=== PATIENT | female | born 1955 | race Caucasian/White ===

== ENCOUNTER → 2017-09-22 | Outpatient (CLI) | payer BC ==
[~2017-09-22] MED LIST: ALIGN4 MG PO; CLONAZEPAM1 MG PO; DICYCLOMINE HCL20 MG PO; ESTRADIOL-NORE1 EACH PO; ESTROGEN PO; KLONOPIN PO; PANTOPRAZOLE SO40 MG PO; PRAVASTATIN SOD40 MG PO; SAPHRIS10 MG PO
--- NOTE | 2017-09-26 16:31 | Diagnostic Imaging Report ---
#[id number] - MGSCRBIL #BILATERAL DIGITAL SCREENING MAMMOGRAM WITH CAD: 09/22/2017 CLINICAL: Routine screening. Comparison is made to exam dated: 09/12/2016 mammogram - [facility]. Current study contains 4 films. The tissue of both breasts is predominantly fatty. Current study was also evaluated with a Computer Aided Detection (CAD) system. There are benign calcifications in both breasts. There also are benign intramammary nodes in both breasts. No significant masses, calcifications, or other findings are seen in either breast. There has been no significant interval change. IMPRESSION: BENIGN There is no mammographic evidence of malignancy. A 1 year screening mammogram is recommended. The patient will be notified by letter of the results. Jassi feliciano/albert:09/26/2017 10:49:42 Manager Investigations: Cyndi KIRBY(R)(M), [facility] letter sent: Compared to Prior B9 Mammogram BI-RADS: 2 Benign
== END | disposition home or self-care (01) ==
LOC: MAMMO 08:36
PROVIDERS: ATTEND Obstetrics & Gynecology Obstetrics
DX: Z12.31 Encounter for screening mammogram for malignant neoplasm of breast (principal)
CPT/HCPCS: 77067

== ENCOUNTER → 2018-03-23 | Outpatient (CLI) | payer BC ==
--- NOTE | 2018-03-23 09:13 | Diagnostic Imaging Report ---
PROCEDURE:US RETROPERITONEAL ( KIDNEY ). COMPARISON:None. INDICATIONS:RENAL CYST TECHNIQUE: Walter-scale and color sonographic images of the bilateral kidneys and bladder where obtained in transverse and longitudinal planes. FINDINGS: RIGHT KIDNEY: 11.5 cm in length, cortical thickness 2.1 cm Cysts: Exophytic anechoic simple cyst projecting from the medial aspect of the right kidney measuring 6 x 6 x 5.9 cm. Small amount of echogenic debris layering within the dependent portion. No internal vascularity by color Doppler analysis. Solid masses: None Stones: None Hydronephrosis: None Echogenicity: Normal renal cortical echogenicity. LEFT KIDNEY: 10.9 cm in length, cortical thickness 1.8 cm. Cysts: None Solid masses: None Stones: None Hydronephrosis: None Echogenicity: Normal renal cortical echogenicity. Bladder: Unremarkable. Right and left ureteral jets are identified. CONCLUSION: 6 cm right renal cyst with small amount of layering internal debris. Dictated by: on 03/23/2018 at 9:21 Rivera Jay MD Electronically approved by: Rivera Jay M.D. on 03/23/2018 at 9:21
== END ==
LOC: US 07:31
PROVIDERS: ATTEND Family Medicine
DX: N28.1 Cyst of kidney, acquired (principal)
CPT/HCPCS: 76770

== ENCOUNTER → 2018-09-21 | Outpatient (CLI) | payer BC | LOC: MAMMO 08:22 | PROVIDERS: ATTEND Obstetrics & Gynecology Obstetrics | DX: Z12.31 Encounter for screening mammogram for malignant neoplasm of breast (principal) | CPT/HCPCS: 77067 ==

== ENCOUNTER → 2018-12-30 | Outpatient (CLI) | payer BC ==
[~2018-12-30] MED LIST changes: +CYMBALTA30 MG PO; +LOSARTAN POTASS25 MG PO
--- NOTE | 2018-12-30 09:36 | Diagnostic Imaging Report ---
EXAMINATION: CHEST 2 VIEWS INDICATION: Asthma COMPARISON: None FINDINGS: TUBES and LINES: None. LUNGS: The lungs are mildly hyperinflated. No focal consolidation or pulmonary edema. PLEURA: No pleural effusion or pneumothorax. HEART AND MEDIASTINUM: The cardiomediastinal silhouette is normal in size and contour. BONES AND SOFT TISSUES: Old midthoracic lateral rib fracture on the right. No acute fracture. UPPER ABDOMEN: No free air under the diaphragm. IMPRESSION: Mildly hyperinflated lungs. No focal pneumonia or pulmonary edema. Signed by: Yesenia Cherry MD on 12/30/2018 9:32 AM
== END ==
LOC: RAD 08:19
PROVIDERS: ATTEND Family Medicine
DX: J45.909 Unspecified asthma, uncomplicated (principal)
CPT/HCPCS: 71046

== ENCOUNTER → 2019-02-22 | Day surgery (SDC) | payer BC ==
[~2019-02-22] MED LIST changes: +FENTANYL CITRATE/PF 100MCG/2 ML INJ ONE; +GLUCAGON FOR INJ 1 MG VIAL ONE; +HYOSCYAMINE 0.125 MG TAB ONE; +MIDAZOLAM HCL 2 MG/2 ML VIAL ONE; +PROPOFOL IV EMULSION 10 MG/ML 20 ML VIAL ONE; +PROPOFOL IV EMULSION 10 MG/ML 50 ML VIAL ONE
--- OUTSIDE RECORDS SUMMARY | 2019-02-22 06:03 | XMS REPORT ---
Author Author [facility] Address Unknown Phone Unavailable Care Team Providers Care Credit And Collections Analyst Name Role Phone GABE CARMONA Unavailable Unavailable Kelly RANDALL Unavailable Unavailable Problems This patient has no known problems. Allergies, Adverse Reactions, Alerts This patient has no known allergies or adverse reactions. Medications This patient has no known medications. Results Test Description Test Time Test Comments Text Results Atomic Results Result Comments CHEST 2 VIEWS 2018-12-30 09:25:00 [facility] [address] [place] [address] Patient Name: BEN DIAS MR #: [id number] : 1955 Age/Sex: 63/F Req #: [id number] Adm Physician: Ordered by: GABE CARMONA MD Report #: [id number] Location: [facility] Room/Bed: Procedure: [id number] DX/CHEST 2 VIEWS Exam Date: 12/30/18 Exam Time: 824 REPORT STATUS: Signed EXAMINATION: CHEST 2 VIEWS INDICATION: Asthma COMPARISON: None FINDINGS: TUBES and LINES: None. LUNGS: The lungs are mildly hyperinflated. No focal consolidation or pulmonary edema. PLEURA: No pleural effusion or pneumothorax. HEART AND MEDIASTINUM: The cardiomediastinal silhouette is normal in size and contour. BONES AND SOFT TISSUES: Old midthoracic lateral rib fracture on the right. No acute fracture. UPPER ABDOMEN: No free air under the diaphragm. IMPRESSION: Mildly hyperinflated lungs. No focal pneumonia or pulmonary edema. Signed by: Candelario Aragon MD on 12/30/2018 9:32 AM Dictated By: CANDELARIO ARAGON MD 1 Transcribed By: VAN on 12/30/18931 COPY TO: GABE CARMONA MD MAMMOGRAPHY DIGITAL SCR BILAT 2018-09-21 09:06:00 [place] [address] Patient Name: BEN DIAS MR #: [id number] : 1955 Age/Sex: 62/F Req #: [id number] Adm Physician: Ordered by: CRUZITO RANDALL MD Report #: [id number] Location: MAMMO Room/Bed: Procedure: [id number] MG/MAMMOGRAPHY DIGITAL SCR BILAT Exam Date: 09/21/18 Exam Time: 0850 REPORT STATUS: Signed #[id number] - MGSCRBIL #BILATERAL DIGITAL SCREENING MAMMOGRAM WITH CAD: 09/21/2018 CLINICAL: Routine screening. Comparison is made to exams dated: 09/22/2017 mammogram, 09/12/2016 mammogram and 09/22/2015 mammogram - [facility]. Current study contains 4 films. The tissue of both breasts is predominantly fatty. Current study was also evaluated with a Computer Aided Detection (CAD) system. There are benign calcifications in both breasts. There also are benign intramammary nodes in both breasts. No significant masses, calcifications, or other findings are seen in either breast. There has been no significant interval change. IMPRESSION: BENIGN There is no mammographic evidence of malignancy. A 1 year screening mammogram is recommended. The patient will be notified by letter of the results. Jassi feliciano/albert:10/06/2018 17:04:57 Front Edger: Cyndi CHAMBERLAIN)(M), [facility] letter sent: Compared to Prior B9 Mammogram BI-RADS: 2 Benign Dictated By: JASSI LEMUS DO 03 Transcribed By: ALBERT on 10/06/181703 COPY TO: CRUZITO RANDALL MD US RENAL RETROPERITONEAL COMP 2018-03-23 09:21:00 [place] [address] Patient Name: BEN DIAS MR #: [id number] : 1955 Age/Sex: 62/F Req #: [id number] Adm Physician: Ordered by: GABE CARMONA MD Report #: [id number] Location: US Room/Bed: Procedure: [id number] US/US RENAL RETROPERITONEAL COMP Exam Date: Exam Time: REPORT STATUS: Signed PROCEDURE: US RETROPERITONEAL ( KIDNEY ). COMPARISON: None. INDICATIONS: RENAL CYST TECHNIQUE: Walter-scale and color sonographic images of the bilateral kidneys and bladder where obtained in transverse and longitudinal planes. FINDINGS: RIGHT KIDNEY: 11.5 cm in length, cortical thickness 2.1 cm Cysts: Exophytic anechoic simple cyst projecting from the medial aspect of the right kidney measuring 6 x 6 x 5.9 cm. Small amount of echogenic debris layering within the dependent portion. No internal vascularity by color Doppler analysis. Solid masses: None Stones: None Hydronephrosis: None Echogenicity: Normal renal cortical echogenicity. LEFT KIDNEY: 10.9 cm in length, cortical thickness 1.8 cm. Cysts: None Solid masses: None Stones: None Hydronephrosis: None Echogenicity: Normal renal cortical echogenicity. Bladder: Unremarkable. Right and left ureteral jets are identified. CONCLUSION: 6 cm right renal cyst with small amount of layering internal debris. Dictated by: on 03/23/2018 at 9:21 Xiomy Hedrick MD Electronically approved by: Xiomy Hedrick M.D. on 03/23/2018 at 9:21 Dictated By: XIOMY HEDRICK MD 0 Transcribed By: CLAU on 03/23/18920 COPY TO: GABE CARMONA MD MAMMOGRAPHY DIGITAL SCR BILAT [place] [address] Patient Name: BEN DIAS MR #: [id number] : 1955 Age/Sex: 61/F Req #: [id number] Adm Physician: Ordered by: CRUZITO RANDALL MD Report #: [id number] Location: MAMMO Room/Bed: Procedure: [id number] MG/MAMMOGRAPHY DIGITAL SCR BILAT Exam Date: 09/22/17 Exam Time: 0950 REPORT STATUS: Signed #[id number] - MGSCRBIL #BILATERAL DIGITAL SCREENING MAMMOGRAM WITH CAD: 09/22/2017 CLINICAL: Routine screening. Comparison is made to exam dated: 09/12/2016 mammogram - [facility]. Current study contains 4 films. The tissue of both breasts is predominantly fatty. Current study was also evaluated with a Computer Aided Detection (CAD) system. There are benign calcifications in both breasts. There also are benign intramammary nodes in both breasts. No significant masses, calcifications, or other findings are seen in either breast. There has been no significant interval change. IMPRESSION: BENIGN There is no mammographic evidence of malignancy. A 1 year screening mammogram is recommended. The patient will be notified by letter of the results. Jassi feliciano/albert:09/26/2017 10:49:42 Front Edger: Cyndi CHAMBERLAIN)(Si[place]), [facility] letter sent: Compared to Prior B9 Mammogram BI- RADS: 2 Benign Dictated By: JASSI LEMUS DO 104 Transcribed By: ALBERT on 09/26/17 1049 COPY TO: CRUZITO RANDALL MD CHEST 2 VIEWS [place] [address] Patient Name: BEN DIAS MR #: [id number] : 1955 Age/Sex: 61/F Req #: [id number] Adm Physician: Ordered by: GABE CARMONA MD Report #: [id number] Location: [facility] Room/Bed: Procedure: [id number] DX/CHEST 2 VIEWS Exam Date: Exam Time: REPORT STATUS: Signed PROCEDURE: Frontal and lateral views of the chest. COMPARISON: Chest 2 views 12/11/2015. INDICATIONS: BRONCHITIS FINDINGS: Lines/tubes: None. Lungs: The lungs are well inflated and clear. There is no evidence of pneumonia or pulmonary edema. Pleura: There is no pleural effusion or pneumothorax. Heart and mediastinum: The heart and the mediastinum are normal. Atherosclerotic calcifications. Bones: No acute bony abnormality. Degenerative changes of the thoracic spine. IMPRESSION: No acute radiographic abnormality. Dictated by: Chalo Desir M.D. on 03/17/2017 at 11:47 Electronically approved by: Chalo Desir M.D. on 03/17/2017 at 11:47 Dictated By: CHALO DESIR MD 1147 Transcribed By: CLAU on 03/17/17 1147 COPY TO: GABE CARMONA MD
--- NOTE | 2019-02-22 07:05 | NUR ---
SPIRITUAL CARE - Pre-Surgery Assessment: Pt in bed. Pt's at bedside. Pt reported supportive attention from family and friends. Intervention: I provided pastoral presence, hospitality, and sympathetic listening. I acquainted pt with availability of die stamper while hospitalized. Outcome: Pt expressed appreciation for visit. No need for follow up indicated at this time. [facility] Spiritual Care Department O: [phone] Pager: [phone] ([phone] + number calling from)
[2019-02-22 09:13] VITALS: BP 170/89
--- NOTE | 2019-02-22 12:32 | Operative Report ---
DATE OF PROCEDURE: 02/22/2019 SURGEON: Iraj Rodriguez MD PROCEDURE: Colonoscopy with polypectomy. INDICATIONS FOR COLONOSCOPY: Surveillance colonoscopy, the patient with history of numerous colon polyps. MEDICATIONS: The patient was done under MAC, please see anesthesiologist's note. PROCEDURE IN DETAIL: With the patient in left lateral decubitus position, a flexible fiberoptic Olympus colonoscope was inserted into the rectum with ease and advanced all the way to the cecum. Diverticular disease was noted throughout. The mucosa overlying the cecum, ascending and transverse colon other than for diverticular disease appeared to be within normal limits. One polyp was removed per hot biopsy forceps from the descending colon. Seven polyps were removed per hot biopsy forceps from the sigmoid colon and 11 polyps were removed from the rectum. The scope was then retroflexed into the distal rectum and small internal hemorrhoids were noted, none of which was actively bleeding. The scope was then straightened out, it was subsequently withdrawn. The patient tolerated the procedure well. IMPRESSION: 1. Pandiverticulosis. 2. Descending colon polyp x1, hot biopsied. 3. Sigmoid colon polyps x7, hot biopsied. 4. Rectal polyps x11, hot biopsied. 5. Internal hemorrhoids, none actively bleeding. 6. A total of 19 polyps were removed. PLAN: 1. Follow up histology. 2. Continue high-fiber, low-fat diet. Continue high-fiber supplement. 3. The patient might benefit from a followup colonoscopy in 1 to 2 years. Iraj Rodriguez MD [facility] /[id number] cc: Beny Martinez MD
== END | disposition home or self-care (01) ==
LOC: OR 06:01
PROVIDERS: ATTEND Internal Medicine Gastroenterology
DX: Z12.11 Encounter for screening for malignant neoplasm of colon (principal); K57.30 Diverticulosis of large intestine without perforation or abscess without bleeding; K63.5 Polyp of colon; K62.1 Rectal polyp; K64.8 Other hemorrhoids; Z86.010 Personal history of colon polyps; Z88.5 Allergy status to narcotic agent; K21.0 Gastro-esophageal reflux disease with esophagitis; Z68.34 Body mass index [BMI] 34.0-34.9, adult; F32.9 Major depressive disorder, single episode, unspecified; F41.9 Anxiety disorder, unspecified; M19.90 Unspecified osteoarthritis, unspecified site
CPT/HCPCS: 45384; J1610; J2250; J2704 ×2; J3010; 45378

== ENCOUNTER → 2019-04-21 | Outpatient (CLI) | payer BC ==
[~2019-04-21] MED LIST changes: -FENTANYL CITRATE/PF 100MCG/2 ML INJ ONE; -GLUCAGON FOR INJ 1 MG VIAL ONE; -HYOSCYAMINE 0.125 MG TAB ONE; -MIDAZOLAM HCL 2 MG/2 ML VIAL ONE; -PROPOFOL IV EMULSION 10 MG/ML 20 ML VIAL ONE; -PROPOFOL IV EMULSION 10 MG/ML 50 ML VIAL ONE
--- NOTE | 2019-04-21 10:23 | Diagnostic Imaging Report ---
EXAMINATION: CHEST 2 VIEWS INDICATION: Bronchitis COMPARISON: Chest radiograph of 12/30/2018 FINDINGS: LINES/TUBES:None LUNGS:The lungs are well-inflated. No focal consolidation or pulmonary edema. PLEURA:No pleural effusion or pneumothorax. MEDIASTINUM:The cardiomediastinal silhouette appears normal in size and shape. Atherosclerotic calcifications of the thoracic aorta. BONES/SOFT TISSUES:No acute osseous injury. ABDOMEN:No free air under the diaphragm. IMPRESSION: No focal pneumonia or pulmonary edema. Signed by: Yesenia Cherry MD on 04/21/2019 10:19 AM
== END ==
LOC: RAD 09:18
PROVIDERS: ATTEND Family Medicine
DX: J40 Bronchitis, not specified as acute or chronic (principal)
CPT/HCPCS: 71046

== ENCOUNTER → 2020-04-03 | Outpatient (CLI) | payer BC | LOC: MAMMO 13:33 | PROVIDERS: ATTEND Obstetrics & Gynecology Obstetrics | DX: Z12.31 Encounter for screening mammogram for malignant neoplasm of breast (principal) | CPT/HCPCS: 77067 ==

== ENCOUNTER → 2021-02-12 | Day surgery (SDC) | payer BC ==
[2021-02-12 10:14] VITALS: BP 130/73
== END | disposition home or self-care (01) ==
LOC: OR 06:50
PROVIDERS: ATTEND Internal Medicine Gastroenterology
DX: Z09 Encounter for follow-up examination after completed treatment for conditions other than malignant neoplasm (principal); D12.5 Benign neoplasm of sigmoid colon; K57.30 Diverticulosis of large intestine without perforation or abscess without bleeding; K64.8 Other hemorrhoids; K21.9 Gastro-esophageal reflux disease without esophagitis; I10 Essential (primary) hypertension; E78.5 Hyperlipidemia, unspecified; F41.9 Anxiety disorder, unspecified; F32.9 Major depressive disorder, single episode, unspecified; Z88.6 Allergy status to analgesic agent; Z01.810 Encounter for preprocedural cardiovascular examination; Z01.812 Encounter for preprocedural laboratory examination; Z20.822 Contact with and (suspected) exposure to COVID-19
CPT/HCPCS: 45380; 45384; 45385; 93005; U0002; 45378

== ENCOUNTER → 2021-04-09 | Outpatient (CLI) | payer BC | LOC: MAMMO 12:46 | PROVIDERS: ATTEND Obstetrics & Gynecology Obstetrics | DX: Z12.31 Encounter for screening mammogram for malignant neoplasm of breast (principal) | CPT/HCPCS: 77067 ==

== ENCOUNTER → 2021-05-03 | Outpatient (CLI) | payer BC | LOC: US 07:42 | PROVIDERS: ATTEND Family Medicine | DX: N28.1 Cyst of kidney, acquired (principal); R14.0 Abdominal distension (gaseous) | CPT/HCPCS: 76700 ==

== ENCOUNTER → 2021-06-13 | Outpatient (CLI) | payer BC ==
[~2021-06-13] MED LIST changes: +IOPAMIDOL 370 MG/ML 200 ML INFUS..BTL INJ ONE; +SODIUM CHLORIDE 0.9% 50ML 50 ML ONE
[2021-06-13 12:27] LABS: CREATININE, SERUM 0.84 mg/dL (0.57-1.11)
== END ==
LOC: CT 11:29
PROVIDERS: ATTEND Family Medicine
DX: N28.89 Other specified disorders of kidney and ureter (principal)
CPT/HCPCS: 36415; 74170; 82565; 84520; Q9967

== ENCOUNTER → 2022-04-11 | Outpatient (CLI) | payer BC ==
[~2022-04-11] MED LIST changes: -IOPAMIDOL 370 MG/ML 200 ML INFUS..BTL INJ ONE; -SODIUM CHLORIDE 0.9% 50ML 50 ML ONE
== END ==
LOC: MAMMO 10:05
PROVIDERS: ATTEND Obstetrics & Gynecology Obstetrics
DX: Z12.31 Encounter for screening mammogram for malignant neoplasm of breast (principal)
CPT/HCPCS: 77067

== ENCOUNTER → 2022-04-25 | Outpatient (CLI) | payer BC | LOC: MAMMO 13:03 | PROVIDERS: ATTEND Obstetrics & Gynecology | DX: R92.2 Inconclusive mammogram (principal) ==

== ENCOUNTER 2024-12-21 14:31 | Emergency (ER) | payer BC, MEDICARE ==
[~2024-12-21] VITALS: Ht 165.1 cm; Wt 108.9 kg
[2024-12-21] MEDS: KETOROLAC TROMETHAMINE 30 MG/ML VIAL IM ONE (16:12)
[2024-12-21] MEDS: METHYLPREDNISOLONE SOD SUCC 125 MG/2ML VIAL IM ONE (16:12)
[2024-12-21 16:37] LABS: LEUKOCYTE ESTERASE ,URINE NEGATIVE (NEGATIVE); PROTEIN,URINE DIPSTICK NEGATIVE (NEGATIVE); URINE UROBILINOGEN 0.2 mg/dL (0.2 - 1)
[2024-12-21 16:45] LABS: EPITHELIAL CELLS,URINE MODERATE /LPF
[2024-12-21] MEDS ORDERED: NAPROSYN500 MG PO (17:10)
[2024-12-21] MEDS ORDERED: METHOCARBAMOL500 MG PO (17:10)
[2024-12-21 17:13] VITALS: PULSE 74; RESP 17; TEMP 98.5; O2SAT 98
== END 2024-12-21 17:22 | disposition home or self-care (01) ==
LOC: ER 15:57
DX: M54.6 Pain in thoracic spine (principal); M54.50 Low back pain, unspecified; I10 Essential (primary) hypertension; E78.5 Hyperlipidemia, unspecified
CPT/HCPCS: 81001; 99283; J1885; J2919